=== PATIENT | male | born 1960 | race Caucasian/White ===

== ENCOUNTER 2016-07-28 10:44 | Emergency (ER) | payer BC, MEDICAID ==
[~2016-07-28] VITALS: Ht 182.9 cm; Wt 93.9 kg
[~2016-07-28 10:44] MED LIST: FLUO10CA26 PO; GEMF600T PO; HUM10VIA5 SQ; METF500T4 PO; METO-304 PO; SILD25TA PO; TRAZ-144 PO; VENL75CA56 PO
--- NOTE | 2016-07-28 10:45 | NUR ---
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 PATIENT TOLD THE ER DOCTOR TO REMOVE THE ADDERALL HE TOOK EARLIER. SKIN IS WARM AND DRY. RESP IS EVEN AND UNLABORED WITH NAD NOTED. ASSISTED TO HOSPITAL GOWN. PLACED ON MONITOR. WILL CONTINUOUSLY MONITOR THE PATIENT. DR WORLEY AT BS FOR EVAL.
[2016-07-28] MEDS ORDERED: IV SET PRIMARY PUMP SET 1 EA INFUS.SET MC ONE ×2 (10:58→11:06)
[2016-07-28] MEDS ORDERED: IV NS 0.9% 1,000 ML ONE ×4 (10:58→12:39)
[2016-07-28] MEDS ORDERED: IV NS 0.9% 1,000 ML BAG IV ONE ×3 (11:00→13:00)
--- NOTE | 2016-07-28 11:00 | NUR ---
LAC #20 IV ACCESS. BLOOD SAMPLE COLLECTED SENT TO LAB
[2016-07-28 11:02] LABS: BASOPHILS # (AUTO) 0.1 /CMM (0.0-0.2); BASOPHILS % (AUTO) 0.9 % (0.0-2.0); EOSINOPHILS % (AUTO) 0.3 % (0.0-6.0); HEMATOCRIT 49 % (39-51); LYMPHOCYTES # (AUTO) 2.8 /CMM (0.8-4.8); LYMPHOCYTES % (AUTO) 28.9 % (20.0-44.0); MEAN CORPUSCULAR HEMOGLOBIN 30 PG (26.0-33.0); MEAN CORPUSCULAR HGB CONC 35 g/dl (31.0-36.0); MEAN CORPUSCULAR VOLUME 87 fL (80-96); MONOCYTES # (AUTO) 0.2 /CMM (0.1-1.30); MONOCYTES % (AUTO) 2.6 % (2.0-12.0); NEUTROPHILS # (AUTO) 6.5 /CMM (1.8-8.9); NEUTROPHILS % (AUTO) 67.3 % (43.0-81.0); PLATELET COUNT (AUTO) 294 /CMM (150-450); RDW COEFFICIENT OF VARIATION 12.5 (11.5-15.0); RED BLOOD CELL COUNT(AUTO) 5.67 MIL/uL (4.5-6.0); WHITE BLOOD COUNT (AUTO) 9.6 K/uL (4.3-11.0)
[2016-07-28 11:13] LABS: ALBUMIN 4.1 g/dL (3.4-5.0); BILIRUBIN,DIRECT 0.1 mg/dL (0.0-0.2); BILIRUBIN,TOTAL 0.4 mg/dL (0.2-1.0); CREATININE 1.1 mg/dL (0.6-1.3); POTASSIUM 4.3 mmol/L (3.5-5.1); TOTAL PROTEIN, SERUM 7.4 g/dL (6.4-8.2)
[2016-07-28 11:14] LABS: SALICYLATE 1.7 mg/dL (2.8-20.0)
[2016-07-28] MEDS ORDERED: INSULIN ASPART NOVOLOG 100 UNIT/ML CARTRIDGE SQ STA (11:37)
[2016-07-28] MEDS ORDERED: INSULIN REGULAR, HUMAN 100 UNIT/ML 10 ML VIAL ONE ×2 (11:54→13:19)
[2016-07-28 11:56] LABS: BILIRUBIN,URINE Negative (NEGATIVE); BLOOD, URINE Trace-intact Ery/uL (NEGATIVE); COLOR,URINE Yellow (YELLOW); KETONES,URINE 40 (NEGATIVE); LEUKOCYTE ESTERASE ,URINE Negative (NEGATIVE); NITRITE, URINE Negative (NEGATIVE); PROTEIN,URINE Trace mg/dl (NEGATIVE); UGLUCOSE >=1000 mg/dL (NEGATIVE); UROBILINOGEN,URINE 0.2 EU/dL (0.2)
[2016-07-28] MEDS ORDERED: INSULIN REGULAR, HUMAN 100 UNIT/ML 10 ML VIAL SQ ONE (12:00)
--- NOTE | 2016-07-28 12:08 | NUR ---
GIVEN 15 UNITS OF INUSLIN WITNESSED AND VERIFIED BY CLARA SINCLAIR RN
[2016-07-28 12:09] LABS: CANNABINOID, URINE NEGATIVE (NEGATIVE); PHENCYCLIDINE SCREEN,URINE NEGATIVE (NEGATIVE)
[2016-07-28 12:10] LABS: APPEARANCE,URINE CLOUDY (CLEAR)
[2016-07-28 12:12] LABS: WBC,URINE 0-2 /HPF (0-3)
[2016-07-28 12:13] LABS: ADD URINE CULTURE NO; BACTERIA,URINE Few /HPF (None Seen); SQUAMOUS EPITHELIAL CELL,UR Rare /HPF (None Seen)
--- NOTE | 2016-07-28 13:15 | NUR ---
GIVEN 5 UNITS OF HUMULIN R VIA IV ORDERED BY DR WORLEY VERBALLY CARRIED OUT . WITNESSED AND VERIFIED BY CLARA SINCLAIR RN
[2016-07-28] MEDS ORDERED: LABETALOL 20 MG/4 ML VIAL ONE ×4 (13:25→21:00)
[2016-07-28] MEDS ORDERED: LABETALOL 20 MG/4 ML VIAL IV ONE ×4 (13:30→21:30)
[2016-07-28] MEDS ORDERED: INSULIN REGULAR, HUMAN 100 UNIT/ML 10 ML VIAL IV ONE (14:00)
[2016-07-28] MEDS ORDERED: CLONIDINE HCL 0.1 MG TABLET ONE (14:45)
[2016-07-28] MEDS ORDERED: ONDANSETRON HCL/PF 4 MG/2 ML VIAL ONE (14:46)
[2016-07-28] MEDS ORDERED: ONDANSETRON HCL/PF - ER 4 MG/2 ML VIAL IV ONE (15:00)
[2016-07-28] MEDS ORDERED: CLONIDINE HCL 0.1 MG TABLET PO ONE (15:00)
[2016-07-28] MEDS ORDERED: METOPROLOL SUCCINATE 50 MG TAB.SR.24H PO SCH (18:30)
[2016-07-28] MEDS ORDERED: METOPROLOL TARTRATE 50 MG TABLET ONE (18:37)
--- NOTE | 2016-07-28 19:24 | NUR ---
CALLED [facility] FOR PSYCH EVAL, ETA 1 HOUR
--- NOTE | 2016-07-28 20:20 | NUR ---
[facility] AT BEDSIDE FOR PSYCH EVAL
[2016-07-28 21:23] VITALS: BP 156/83
== END 2016-07-28 21:23 | disposition home or self-care (01) ==
LOC: ER 10:45
DX: T14.91 Suicide attempt (principal); F10.129 Alcohol abuse with intoxication, unspecified; E11.65 Type 2 diabetes mellitus with hyperglycemia
CPT/HCPCS: 36415; 80048; 80076; 80305; 80329; 81001; 82962 ×3; 85025; 96361; 96372; 96374; 96375; 96376; 99285; A4606; G0480 ×2; J1815 ×2; J2405; J3490 ×3; J7030 ×3; Z7610; 81000-TC; G6039-TC